=== PATIENT | female | born 1965 | race Caucasian/White ===

== ENCOUNTER 2018-09-16 18:56 | Emergency (ER) | payer BC ==
[2018-09-16 19:13] VITALS: BP 129/54
[2018-09-16] MEDS ORDERED: Ondansetron 4 MG Tab.DIS PO ONE (20:26)
[2018-09-16] MEDS ORDERED: HYDROmorphone 1 MG/ML Syringe IM ONE (20:26)
--- NOTE | 2018-09-16 20:49 | EDM.PDOC ---
ED HPI GENERAL MEDICAL PROBLEM - General Chief Complaint: Lower Extremity Injury/Pain Stated Complaint: FELL ON ICE KNEE/ANKLE INJURY Time Seen by Provider: 09/16/18 19:30 Source of Information: Reports: Patient, RN Notes Reviewed History Limitations: Reports: No Limitations - History of Present Illness INITIAL COMMENTS - FREE TEXT/NARRATIVE: Patient is a 53-year-old female who presents to the ED for evaluation of left ankle and left knee pain. She states that she slipped and fell on the ice in her driveway. She noted that she slid down onto her left knee and states that her ankle went the other way. She states that she is having extreme pain in both joints as of now. She did not take any pain medications for this as she came straight to the ER after this took place. She would rate her pain at a 9 out of 10 in her left ankle and a 7 out of 10 on her left knee. Left Ankle Pain Score (Numeric/FACES): 9 Left Knee Pain Score (Numeric/FACES): 7 - Related Data Allergies Allergy/AdvReac Type Severity Reaction Status Date / Time Penicillins Allergy Hives Verified 06/19/14 21:45 Home Meds: Home Meds DULoxetine [Cymbalta] 90 mg PO DAILY 06/19/14 [History] Estradiol 1 tab DAILY 06/19/14 [History] Hydrocodone/Acetaminophen [Hydrocodon-Acetaminophen 5-325] 1 tab ASDIRECTED PRN 06/19/14 [History] Hydroxychloroquine Sulfate [Plaquenil] 100 mg PO DAILY 06/19/14 [History] LORazepam 1 tab ASDIRECTED PRN 06/19/14 [History] Topiramate 1 tab DAILY 06/19/14 [History] predniSONE 1 tab ASDIRECTED 06/19/14 [History] traZODone 1 tab DAILY 06/19/14 [History] Acetaminophen/HYDROcodone [[place] 325-5 MG] 1 tab PO Q6H PRN #28 tablet 09/16/18 [Rx] Past Medical History Musculoskeletal History: Reports: RA Social & Family History - Tobacco Use Smoking Status *Q: Never Smoker - Caffeine Use Caffeine Use: Reports: None - Recreational Drug Use Recreational Drug Use: No Review of Systems - Review of Systems Review Of Systems: See Below Constitutional: Reports: No Symptoms Eyes: Reports: No Symptoms Ears: Reports: No Symptoms Nose: Reports: No Symptoms Mouth/Throat: Reports: No Symptoms Respiratory: Reports: No Symptoms Cardiovascular: Reports: No Symptoms GI/Abdominal: Reports: No Symptoms Genitourinary: Reports: No Symptoms Musculoskeletal: Reports: Joint Pain (Left ankle, left knee), Joint Swelling ( Left ankle). Denies: Muscle Pain Skin: Reports: No Symptoms Neurological: Reports: No Symptoms Psychiatric: Reports: No Symptoms ED EXAM, GENERAL - Physical Exam Exam: See Below Exam Limited By: No Limitations General Appearance: Alert, WD/WN, No Apparent Distress Eye Exam: Bilateral Eye: EOMI, Normal Inspection, PERRL Ears: Normal External Exam, Normal TMs Nose: Normal Inspection Throat/Mouth: Normal Inspection, Normal Oropharynx, No Airway Compromise Head: Atraumatic, Normocephalic Neck: Normal Inspection, Supple, Non-Tender, Full Range of Motion Respiratory/Chest: No Respiratory Distress, Lungs Clear, Normal Breath Sounds, No Accessory Muscle Use, Chest Non-Tender Cardiovascular: Normal Peripheral Pulses, Regular Rate, Rhythm, No Murmur GI/Abdominal: Normal Bowel Sounds, Soft, Non-Tender, No Distention, No Mass Back Exam: Normal Inspection, Full Range of Motion Extremities: Normal Inspection, Normal Capillary Refill, Joint Swelling (left ankle), Limited Range of Motion (left ankle due to pain) Neurological: Alert, Oriented, Normal Cognition, No Motor/Sensory Deficits Psychiatric: Normal Affect, Normal Mood Skin Exam: Warm, Dry, Intact, Normal Color, No Rash ED TRAUMA EXTREMITY PROCEDURES - Splinting Left Lower Extremity Splint Site: left ankle Pre-Procedure NV Status: Normal Post-Procedure NV Status: Normal Splint Material: Fiberglass Splint Design: Stirrup, Posterior Applied & Form Fitted By: Provider Provider Post-Splint Application NV Check: NV Status Normal, Good Position Complications: No Course - Vital Signs Last Recorded V/S: Last Vital Signs Temp 97.9 F 09/16/18 19:10 Pulse 80 09/16/18 19:10 Resp 18 09/16/18 19:10 BP 129/54 L 09/16/18 19:10 Pulse Ox 100 09/16/18 19:10 - Orders/Labs/Meds Orders: Active Orders 24 hr Category Date Time Status Ankle Min 3V Lt [CR] Stat Exams 09/16/18 19:30 Ordered Knee 3V Lt [CR] Stat Exams 09/16/18 19:30 Ordered Meds: Medications Discontinued Medications Generic Name Dose Route Start Last Admin Trade Name Freq PRN Reason Stop Dose Admin Hydromorphone HCl 1 mg 09/16/18 20:26 09/16/18 20:38 Dilaudid IM 09/16/18 20:27 1 mg ONETIME ONE Administration Ondansetron HCl 4 mg 09/16/18 20:26 09/16/18 20:38 Zofran Odt PO 09/16/18 20:27 4 mg ONETIME ONE Administration - Re-Assessments/Exams Free Text/Narrative Re-Assessment/Exam: 09/16/18 20:50 Patient presents to the ED for evaluation of left ankle and left knee pain. X- rays were obtained of the left knee and were within normal limits, however her left ankle does show a nondisplaced distal fibular fracture, the mortise joint space is not narrowed or widened. This was reviewed with Dr. Kessler. Official radiology read is pending at this time. Have ordered 1 mg IM Dilaudid and 4 mg ODT Zofran for management of this. It'll need to splint this and have her follow-up with Dr. Velasco on Wednesday. Will send her home with some tabs of [place] for pain relief over the weekend. She will need to take Wednesday off as she will need to stay to obtain appointments with Dr. Velasco. She will need to be non- weightbearing until Dr. Velasco clears her or otherwise. Departure - Departure Time of Disposition: 21:25 Disposition: Home, Self-Care 01 Condition: Fair Clinical Impression: Fracture of fibula Qualifiers: Encounter type: initial encounter Fibula location: distal Fracture type: closed Fracture morphology: other fracture Laterality: left Qualified Code(s): S82.832A - Other fracture of upper and lower end of left fibula, initial encounter for closed fracture - Discharge Information *PRESCRIPTION DRUG MONITORING PROGRAM REVIEWED*: No *COPY OF PRESCRIPTION DRUG MONITORING REPORT IN PATIENT BELINDA: No Prescriptions: Acetaminophen/HYDROcodone [[place] 325-5 MG] 1 tab PO Q6H PRN #28 tablet PRN Reason: Pain Instructions: Cast or Splint Care, Adult, [id number], Knee Sprain, Adult, [id number], Fibular Ankle Fracture Treated With or Without Immobilization, Adult, Pain Medicine Instructions, [id number] Referrals: Renae Forrester NP [Primary Care Provider] - Forms: ED Department Discharge, ED Return to Work/School Form Additional Instructions: You have been evaluated in the ED for your left ankle and knee pain. Your x-ray demonstrated a closed fracture of your distal fibula. You will need to follow-up with orthopedics, please call [phone] early Wednesday morning for an appointment. This will be with Dr. Velasco. You will need to be non-weightbearing please use the crutches for walking. Please use ice as tolerated to the affected area. You may take tylenol 500 mg or ibuprofen 600mg q6 hrs for pain relief. Please do so until you have a tolerable level of pain with activity. Do not exceed 4000mg tylenol, Do not exceed 3200mg ibuprofen in a 24 hour time period. Please take the [place] 5/325 tablets every 6 hours as needed for pain relief. Do not drive while taking this medication. Please return to ED if your symptoms should change or worsen. - My Orders Last 24 Hours: My Active Orders 09/16/18 19:30 Ankle Min 3V Lt [CR] Stat Knee 3V Lt [CR] Stat - Assessment/Plan Last 24 Hours: My Active Orders 09/16/18 19:30 Ankle Min 3V Lt [CR] Stat Knee 3V Lt [CR] Stat
--- NOTE | 2018-09-19 07:38 | CR ---
Left knee: AP, lateral and sunrise patellar views of the left knee were obtained. Comparison: No prior knee exam. Medial joint appears slightly narrowed. Lateral joint space is preserved. No joint effusion is seen. No discrete fracture or other abnormality is seen. Impression: 1. Medial joint space narrowing. 2. Nothing acute is seen on three-view left knee study. Diagnostic code #2
--- NOTE | 2018-09-19 08:14 | CR ---
Left ankle: Three views of the left ankle were obtained. Comparison: No prior ankle exam. Fracture is identified within the lateral malleolus. Minimal displacement is seen by several millimeters. Small plantar spur is noted. Small spur is noted at the attachment of the Achilles tendon to the calcaneus. Ankle mortise is symmetric. Soft tissue swelling is noted. Impression: 1. Slightly displaced lateral malleolus fracture. 2. Soft tissue swelling and other incidental findings. Diagnostic code #3
== END 2018-09-16 21:44 | disposition home or self-care (01) ==
LOC: JD.ED 18:56
DX: S82.832A Other fracture of upper and lower end of left fibula, initial encounter for closed fracture (principal); Z88.0 Allergy status to penicillin; Z79.899 Other long term (current) drug therapy; W00.0XXA Fall on same level due to ice and snow, initial encounter
CPT/HCPCS: 29515; 73562; 73610; 99283; A9270; J1170

== ENCOUNTER 2022-05-18 19:38 | Inpatient (IN) | payer BC ==
[2022-05-18] MEDS ORDERED: Ondansetron 4 MG/2 ML SDV IVPUSH ONE (21:05)
[2022-05-18] MEDS ORDERED: Sodium Chloride 0.9% 10 ML Syringe FLUSH PRN (21:05)
[2022-05-18] MEDS ORDERED: HYDROmorphone 0.5 MG/0.5 ML Syringe IVPUSH ONE (21:05)
[2022-05-18] MEDS ORDERED: Sodium Chloride 0.9% 1,000 ML IV STA ×2 (21:05→22:28)
[2022-05-18] MEDS ORDERED: Iopamidol 612 MG/ML 100 ML Bottle IVPUSH ONE (21:15)
[2022-05-18] MEDS ORDERED: Sodium Chloride 0.9% 1,000 ML IV SCH (22:30)
[2022-05-18] MEDS ORDERED: Sodium Chloride 0.9% 1,000 ML ONE (22:30)
[2022-05-18] MEDS ORDERED: LORazepam 2 MG/ML SDV IV PRN (23:31)
[2022-05-18] MEDS ORDERED: Ondansetron 4 MG/2 ML SDV IV PRN (23:31)
[2022-05-18] MEDS ORDERED: Bupivacaine 0.5%/EPINEPHrine 1:200,000 50 ML MDV ONE (23:36)
[2022-05-18] MEDS ORDERED: Lidocaine 1% 50 ML MDV ONE (23:36)
[2022-05-18] MEDS ORDERED: Metoprolol Tartrate 5 MG/5 ML SDV IVPUSH PRN (23:37)
[2022-05-18] MEDS ORDERED: Enalaprilat 1.25 MG/ML SDV IVPUSH PRN (23:38)
[2022-05-18] MEDS ORDERED: Midazolam 1 MG/ML 2 ML SDV ONE (23:53)
[2022-05-18] MEDS ORDERED: fentaNYL 100 MCG/2 ML SDV ONE (23:54)
[2022-05-18] MEDS ORDERED: Propofol 200 MG/20 ML SDV ONE (23:54)
[2022-05-18] MEDS ORDERED: Ondansetron 4 MG/2 ML SDV ONE (23:57)
[2022-05-18] MEDS ORDERED: Succinylcholine 200 MG/10 ML MDV ONE (23:57)
[2022-05-18] MEDS ORDERED: Rocuronium 50 MG/5 ML Vial ONE (23:57)
[2022-05-19] MEDS ORDERED: ceFAZolin 2 GM Vial ONE (00:01)
[2022-05-19] MEDS ORDERED: Dexmedetomidine 200 MCG/2 ML SDV ONE (00:02)
[2022-05-19] MEDS ORDERED: Lidocaine 1% 2 ML ONE (00:04)
[2022-05-19] MEDS ORDERED: metroNIDAZOLE/Normal Saline 100 ML ONE (00:16)
[2022-05-19] MEDS ORDERED: Phenylephrine HCl In 0.9% NaCl 1 MG/10 ML Vial ONE (00:27)
[2022-05-19] MEDS ORDERED: HYDROmorphone 0.5 MG/0.5 ML Syringe ONE (00:37)
[2022-05-19] MEDS ORDERED: Ropivacaine 0.5% 5 MG/ML 30 ML SDV ONE (00:51)
[2022-05-19] MEDS ORDERED: Lactated Ringers 1,000 ML ONE (01:22)
[2022-05-19] MEDS ORDERED: Lidocaine 1% 4 ML ONE (01:41)
[2022-05-19] MEDS ORDERED: Sugammadex Sodium 200 MG/2 ML VIAL ONE (01:43)
[2022-05-19] MEDS ORDERED: fentaNYL 100 MCG/2 ML SDV IVPUSH PRN (02:43)
[2022-05-19] MEDS ORDERED: HYDROmorphone 0.5 MG/0.5 ML Syringe IVPUSH PRN (02:43)
[2022-05-19] MEDS ORDERED: Prochlorperazine 10 MG/2 ML SDV IVPUSH PRN (03:20)
[2022-05-19] MEDS: Pantoprazole 40 MG Vial IV SCH (06:28)
[2022-05-19] MEDS: Heparin Sodium 5,000 Units/ML Vial SUBCUT SCH ×4 (07:34→23:42)
[2022-05-19] MEDS: HYDROmorphone 0.5 MG/0.5 ML Syringe IVPUSH PRN ×7 (07:37→22:24)
[2022-05-19] MEDS: Methocarbamol 500 MG Tab PO SCH ×3 (09:37→20:39)
[2022-05-19] MEDS ORDERED: Magnesium Sulfate (4.06 MEQ/ML) 5 GM/10 ML SDV IV ONE (13:10)
[2022-05-19] MEDS: Acetaminophen 325 MG Tab PO PRN ×2 (13:25→19:35)
[2022-05-19] MEDS ORDERED: Magnesium Sulfate/Water 2 GM in Premix Bag 1 BAG IV ONE (13:30)
[2022-05-19] MEDS: fentaNYL 25 MCG/HR Transdermal Patch TRDERM SCH (17:19)
[2022-05-19] MEDS: DULOXETINE 60 MG PO SCH (20:40)
[2022-05-19] MEDS: DULOXETINE 30 MG PO SCH (20:40)
[2022-05-20] MEDS: HYDROmorphone 0.5 MG/0.5 ML Syringe IVPUSH PRN ×4 (01:05→09:00)
[2022-05-20] MEDS: Methocarbamol 500 MG Tab PO SCH ×4 (02:48→20:50)
[2022-05-20] MEDS: Acetaminophen 325 MG Tab PO PRN ×3 (02:48→23:26)
[2022-05-20] MEDS: Pantoprazole 40 MG Vial IV SCH (05:52)
[2022-05-20] MEDS: Heparin Sodium 5,000 Units/ML Vial SUBCUT SCH ×3 (08:59→23:38)
[2022-05-20] MEDS: oxyCODONE 5 MG Tab PO PRN ×3 (11:40→23:26)
[2022-05-20] MEDS: Simethicone 80 MG Tab.Chew PO PRN ×2 (13:12→19:53)
[2022-05-20] MEDS: DULOXETINE 60 MG PO SCH (20:50)
[2022-05-20] MEDS: DULOXETINE 30 MG PO SCH (20:50)
[2022-05-21] MEDS: Methocarbamol 500 MG Tab PO SCH ×4 (03:18→20:18)
[2022-05-21] MEDS: Simethicone 80 MG Tab.Chew PO PRN ×4 (03:18→22:03)
[2022-05-21] MEDS: Acetaminophen 325 MG Tab PO PRN ×3 (05:55→18:18)
[2022-05-21] MEDS: oxyCODONE 5 MG Tab PO PRN ×3 (05:56→18:18)
[2022-05-21] MEDS: Pantoprazole 40 MG Vial IV SCH (05:57)
[2022-05-21] MEDS: Heparin Sodium 5,000 Units/ML Vial SUBCUT SCH ×2 (10:14→15:54)
[2022-05-21] MEDS ORDERED: Ondansetron 4 MG Tab.DIS PO PRN (16:25)
[2022-05-21] MEDS ORDERED: diphenhydrAMINE 25 MG Cap PO PRN (16:25)
[2022-05-21] MEDS: DULOXETINE 30 MG PO SCH (20:18)
[2022-05-21] MEDS: DULOXETINE 60 MG PO SCH (20:19)
[2022-05-22] MEDS: oxyCODONE 5 MG Tab PO PRN ×3 (00:04→15:29)
[2022-05-22] MEDS: Heparin Sodium 5,000 Units/ML Vial SUBCUT SCH ×3 (00:04→15:21)
[2022-05-22] MEDS: Acetaminophen 325 MG Tab PO PRN ×3 (00:05→15:22)
[2022-05-22] MEDS: Methocarbamol 500 MG Tab PO SCH ×4 (03:07→20:49)
[2022-05-22] MEDS: Simethicone 80 MG Tab.Chew PO PRN ×3 (07:48→20:49)
[2022-05-22] MEDS: fentaNYL 25 MCG/HR Transdermal Patch TRDERM SCH (17:25)
[2022-05-22] MEDS: DULOXETINE 30 MG PO SCH (20:49)
[2022-05-22] MEDS: DULOXETINE 60 MG PO SCH (20:49)
[2022-05-23] MEDS: Acetaminophen 325 MG Tab PO PRN ×4 (00:01→18:40)
[2022-05-23] MEDS: oxyCODONE 5 MG Tab PO PRN ×4 (00:01→18:41)
[2022-05-23] MEDS: Simethicone 80 MG Tab.Chew PO PRN ×3 (02:54→18:40)
[2022-05-23] MEDS: Methocarbamol 500 MG Tab PO SCH ×3 (02:54→15:20)
[2022-05-23] MEDS: Heparin Sodium 5,000 Units/ML Vial SUBCUT SCH ×3 (07:55→15:21)
[2022-05-23] MEDS: Aluminum Hydroxide/Magnesium Hydroxide/Simethicone Susp 30 ML Cup PO SCH ×2 (15:37→18:06)
[2022-05-23 15:41] VITALS: BP 122/81; PULSE 89
== END 2022-05-23 19:25 | disposition home or self-care (01) | DRG 231 ==
LOC: JD.ED 19:38 → JD.SDS 23:09 → JD.OB 05-19 01:55
PROVIDERS: ADMIT Surgery; ATTEND Surgery
PROC: 0DTF0ZZ Resection of Right Large Intestine, Open Approach (ICD-10-PCS; principal; 2022-05-19)
DX: K56.2 Volvulus (principal); K91.1 Postgastric surgery syndromes; K59.09 Other constipation; M06.9 Rheumatoid arthritis, unspecified; I10 Essential (primary) hypertension; Z98.84 Bariatric surgery status; Z90.49 Acquired absence of other specified parts of digestive tract; Z88.0 Allergy status to penicillin; Z79.52 Long term (current) use of systemic steroids; Z79.899 Other long term (current) drug therapy; Z90.710 Acquired absence of both cervix and uterus
CPT/HCPCS: 00790; 36415; 64488; 74177; 74177-26; 80048; 80053; 81001; 83690; 83735; 85025; 85610; 85730; 86140; 96361; 96374; 96375; 99285-25; A9270-GY; C9113; J0330; J0690; J0780; J1170; J1644; J2001; J2250; J2405; J2704; J2795; J3010; J3475; J3490; J7030; J7120; Q9967

== ENCOUNTER 2023-05-07 17:00 | Emergency (ER) | payer BC ==
[2023-05-07] MEDS ORDERED: Dexamethasone 10 MG/ML SDV IVPUSH ONE (18:31)
[2023-05-07] MEDS ORDERED: cefTRIAXone 2 GM in Sodium Chloride 0.9% 100 ML IV ONE (18:31)
[2023-05-07] MEDS ORDERED: HYDROmorphone 0.5 MG/0.5 ML Syringe IVPUSH ONE (18:33)
[2023-05-07] MEDS ORDERED: Naloxone 0.4 MG/ML SDV IVPUSH PRN (18:33)
[2023-05-07] MEDS ORDERED: Metoclopramide 10 MG/2 ML SDV IVPUSH ONE (18:35)
[2023-05-07] MEDS ORDERED: Iopamidol 612 MG/ML 100 ML Bottle IVPUSH ONE ×2 (18:50→19:17)
[2023-05-07] MEDS: Sodium Chloride 0.9% 10 ML Syringe FLUSH ONE ×2 (18:53→19:18)
[2023-05-07] MEDS ORDERED: Dextrose 5%-0.9% NaCl 1,000 ML IV SCH (19:00)
[2023-05-07] MEDS ORDERED: Sodium Chloride 0.9% 10 ML Syringe FLUSH SCH (19:30)
[2023-05-07 20:34] LABS: BASOPHILS PERCENT AUTO 0.3 % (0.0-1.0); EOSINOPHILS ABSOLUTE AUTO 0.1 K/mm3 (0.0-0.4); EOSINOPHILS PERCENT AUTO 0.8 % (0.0-6.0); HEMATOCRIT 36.3 % (37.0-47.0); HEMOGLOBIN 12.5 gm/dl (12.0-16.0); IMMATURE GRAN ABSOLUTE AUTO 0.04 K/mm3 (0.00-0.05); IMMATURE GRAN PERCENT AUTO 0.3 % (0.0-0.4); LYMPHOCYTES ABSOLUTE AUTO 2.4 K/mm3 (1.0-4.8); LYMPHOCYTES PERCENT AUTO 15.2 % (24.0-44.0); MEAN CORPUSCULAR HEMOGLOBIN 31.6 pg (28.0-32.0); MEAN CORPUSCULAR HGB CONC 34.4 g/dl (32.0-36.0); MEAN CORPUSCULAR VOLUME 91.9 fl (83.0-99.0); MONOCYTES ABSOLUTE AUTO 1.1 K/mm3 (0.0-0.8); MONOCYTES PERCENT AUTO 6.7 % (0.0-8.0); NEUTROPHILS ABSOLUTE AUTO 12.2 K/mm3 (1.8-7.7); NEUTROPHILS PERCENT AUTO 76.7 % (41.0-71.0); PLATELET COUNT,PLT 362 K/mm3 (150-400); RED BLOOD CELL COUNT 3.95 M/mm3 (4.10-5.30); WHITE BLOOD CELL COUNT,WBC 15.87 K/mm3 (3.9-11.3)
[2023-05-07 20:44] LABS: A/G RATIO 0.8 (1-2); ALBUMIN 3.5 g/dl (3.4-5.0); ANION GAP 15.8 (5-15); BILIRUBIN TOTAL 0.3 mg/dL (0.2-1.0); BUN/CREATININE RATIO 12.5 (14-18); CALCIUM 9.4 mg/dL (8.5-10.1); CREATININE 0.8 mg/dL (0.55-1.02); EST CRCL DRUG DOSING (CG) 62.1 mL/min; POTASSIUM,K 3.8 mEq/L (3.5-5.1); PROTEIN TOTAL,TP 7.8 g/dl (6.4-8.2)
[2023-05-07 21:02] VITALS: BP 154/89; PULSE 81
== END 2023-05-07 20:50 ==
LOC: JD.ED 17:00
DX: J36 Peritonsillar abscess (principal); D72.825 Bandemia; Z90.49 Acquired absence of other specified parts of digestive tract; Z90.710 Acquired absence of both cervix and uterus; Z79.899 Other long term (current) drug therapy; Z88.0 Allergy status to penicillin; Z88.8 Allergy status to other drugs, medicaments and biological substances
CPT/HCPCS: 36415; 70491; 80053; 85025; 86140; 96361; 96365; 96375; 99284; J0696; J1100; J1170; J2765; J3490; J7042; Q9967